=== PATIENT | male | born 1945 | race Caucasian/White ===

== ENCOUNTER 2025-06-16 11:03 | Observation (INO) | payer MEDICARE ==
[2025-06-16 11:57] LABS: #Basophils 0.05 10x3/uL (0.0-0.2); #Eosinophils 0.19 10x3/uL (0.0-0.7); #Monocytes 0.50 10x3/uL (0.11-0.59); #Neutrophils 3.30 10x3/uL (1.40-6.50); %Basophils 0.8 % (0.0-1.0); %Eosinophils 3.1 % (0.0-10.0); %Lymphocytes 34.1 % (21.0-51.0); %Monocytes 8.1 % (0.0-10.0); %Neutrophils 53.3 % (42.0-75.0); Hematocrit 29.4 % (42.0-52.0); Hemoglobin 9.2 g/dL (14.0-18.0); Mean Corpuscular Hemoglobin 19.3 pg (27.0-31.0); Mean Corpuscular Volume 61.8 fL (78.0-98.0); Platelet Count 226 10x3/uL (130-400); Red Blood Cell (RBC) Count 4.76 mill/uL (4.70-6.10); White Blood Cell (WBC) Count 6.19 10x3/uL (4.8-10.8)
[2025-06-16 12:05] LABS: ALT (SGPT) 12 U/L (Less than 45); AST (SGOT) 18 U/L (11-34); Albumin 3.2 g/dL (3.1-4.5); Alkaline Phosphatase 199 U/L (40-110); Anion Gap 15 mmol/L (10-20); BUN (Urea Nitrogen) 18 mg/dL (8.4-25.7); Bilirubin, Total 0.8 mg/dL (0.3-1.2); Calc. Creatinine Clearance 0 mL/min (70-130); Calcium 8.5 mg/dL (7.8-10.44); Carbon Dioxide 21 mmol/L (23-31); Chloride 107 mmol/L (98-107); Globulin 3.2 g/dL (2.4-3.5); Glucose 160 mg/dL (83-110); Magnesium 1.9 mg/dL (1.6-2.6); Potassium 4.1 mmol/L (3.5-5.1); Sodium 139 mmol/L (136-145)
[2025-06-16 12:09] LABS: Troponin I Less than 0.010 ng/mL (< 0.028)
[2025-06-16 12:28] LABS: Anisocytosis SLIGHT = 6-15 cells HPF (0-5); Microcytosis SLIGHT = 6-15 cells HPF (0-5); Platelet Adequacy Comment Platelets Normal; Poikilocytosis SLIGHT = 6-15 cells HPF (0-5); Polychromasia SLIGHT = 2-3 cells HPF (0-2); Reflex for Review?? YES; Schistocytes SLIGHT = 2-5 cells HPF (0-1); Smudge Cells 6.1 %; Target Cells SLIGHT = 2-5 cells HPF (0-1)
[2025-06-16] MEDS ORDERED: Acetaminophen 325 MG TAB PO PRN (13:53)
[2025-06-16] MEDS ORDERED: Ondansetron PF 4 MG/2 ML Vial IVP PRN (13:53)
[2025-06-16] MEDS ORDERED: Senokot S 8.6-50 MG TAB PO PRN (13:53)
[2025-06-16] MEDS ORDERED: Calcium Carbonate 500 MG ChewTAB PO PRN (13:53)
[2025-06-16] MEDS ORDERED: Electrolyte Replacement Protocol 1 EACH FS SCH (14:00)
[2025-06-16 14:58] LABS: Troponin I Less than 0.010 ng/mL (< 0.028)
[2025-06-16 16:07] VITALS: BMI 33.8
[2025-06-16] MEDS: Heparin 5,000 UNITS/ML VIAL SC SCH (16:15)
[2025-06-16 16:49] LABS: Troponin I Less than 0.010 ng/mL (< 0.028)
[2025-06-16] MEDS: Magnesium 2 GM/50 ML(in water) 2 GM in Premix 1 BAG IVPB SCH (20:10)
[2025-06-16] MEDS: levETIRAcetam 500 MG TAB PO SCH (20:13)
[2025-06-17 05:49] LABS: ALT (SGPT) 12 U/L (Less than 45); AST (SGOT) 17 U/L (11-34); Albumin 3.3 g/dL (3.1-4.5); Alkaline Phosphatase 209 U/L (40-110); Anion Gap 11 mmol/L (10-20); BUN (Urea Nitrogen) 12 mg/dL (8.4-25.7); Bilirubin, Total 0.9 mg/dL (0.3-1.2); Calc. Creatinine Clearance 59 mL/min (70-130); Calcium 8.5 mg/dL (7.8-10.44); Carbon Dioxide 26 mmol/L (23-31); Chloride 106 mmol/L (98-107); Globulin 3.0 g/dL (2.4-3.5); Glucose 112 mg/dL (83-110); Magnesium 2.1 mg/dL (1.6-2.6); Potassium 3.9 mmol/L (3.5-5.1); Sodium 139 mmol/L (136-145)
[2025-06-17 06:37] LABS: #Basophils 0.04 10x3/uL (0.0-0.2); #Eosinophils 0.21 10x3/uL (0.0-0.7); #Monocytes 0.46 10x3/uL (0.11-0.59); #Neutrophils 2.39 10x3/uL (1.40-6.50); %Basophils 0.8 % (0.0-1.0); %Eosinophils 4.2 % (0.0-10.0); %Lymphocytes 38.0 % (21.0-51.0); %Monocytes 9.2 % (0.0-10.0); %Neutrophils 47.6 % (42.0-75.0); Hematocrit 31.2 % (42.0-52.0); Hemoglobin 9.5 g/dL (14.0-18.0); Mean Corpuscular Hemoglobin 19.0 pg (27.0-31.0); Mean Corpuscular Volume 62.4 fL (78.0-98.0); Platelet Count 200 10x3/uL (130-400); Red Blood Cell (RBC) Count 5.00 mill/uL (4.70-6.10); White Blood Cell (WBC) Count 5.02 10x3/uL (4.8-10.8)
[2025-06-17] MEDS: Carvedilol 3.125 MG TAB PO SCH (08:52)
[2025-06-17] MEDS: Aspirin 81 mg Enteric Coated Tablet PO SCH (08:52)
[2025-06-17] MEDS: Lisinopril 10 MG TAB PO SCH (08:52)
[2025-06-17 09:51] LABS: Anisocytosis SLIGHT = 6-15 cells HPF (0-5); Burr Cells SLIGHT = 2-5 cells HPF (0-1); Microcytosis SLIGHT = 6-15 cells HPF (0-5); Platelet Adequacy Comment Platelets Normal; Polychromasia SLIGHT = 2-3 cells HPF (0-2); Smudge Cells 5.0 %
[2025-06-17 11:50] VITALS: BP 157/60; TEMP 97.8
[2025-06-17] MEDS ORDERED: Carvedilol 3.125 MG TAB PO SCH (17:00)
== END 2025-06-17 15:09 | disposition home or self-care (01) ==
LOC: SUATTDRO 11:03 → ERS 11:03 → ERHOLD 13:54 → OBS 13:58
PROVIDERS: ADMIT Internal Medicine; ATTEND Internal Medicine
PROC: B24BZZZ Ultrasonography of Heart with Aorta (ICD-10-PCS; principal; 2025-06-17)
DX: R42 Dizziness and giddiness (principal); R00.1 Bradycardia, unspecified; R20.2 Paresthesia of skin; R53.83 Other fatigue; I13.0 Hypertensive heart and chronic kidney disease with heart failure and stage 1 through stage 4 chronic kidney disease, or unspecified chronic kidney disease; I50.9 Heart failure, unspecified; N18.9 Chronic kidney disease, unspecified; N40.0 Benign prostatic hyperplasia without lower urinary tract symptoms; E11.22 Type 2 diabetes mellitus with diabetic chronic kidney disease; E78.5 Hyperlipidemia, unspecified; Z86.73 Personal history of transient ischemic attack (TIA), and cerebral infarction without residual deficits; Z88.5 Allergy status to narcotic agent; Z88.0 Allergy status to penicillin; Z79.82 Long term (current) use of aspirin; Z79.1 Long term (current) use of non-steroidal anti-inflammatories (NSAID); Z79.899 Other long term (current) drug therapy
CPT/HCPCS: 70450; 71045; 80053; 83735 ×2; 83880; 84484 ×2; 85025; 93005; 93306; 99285; J1644 ×2; J3475; J7030; 36415; 84443; 85060